=== PATIENT | male | born 1960 | race Caucasian/White ===

== ENCOUNTER 2017-03-31 10:56 | Emergency (ER) | payer OTHER ==
[~2017-03-31] VITALS: Ht 177.8 cm; Wt 102.4 kg
[~2017-03-31 10:56] MED LIST: FIORICET 50-301 EACH PO; KEPPRA500 MG PO; LAMICTAL100 MG PO; LAMOTRIGINE100 MG PO; TEGRETOL; TEGRETOL100 MG PO; TRILEPTAL150 MG PO
[2017-03-31 11:02] VITALS: BP 130/79
== END 2017-03-31 12:34 | disposition home or self-care (01) ==
LOC: EME 10:56
PROC: 0HQ2XZZ Repair Right Ear Skin, External Approach (ICD-10-PCS; principal; 2017-03-31)
DX: S01.312A Laceration without foreign body of left ear, initial encounter (principal); W45.8XXA Other foreign body or object entering through skin, initial encounter; W20.8XXA Other cause of strike by thrown, projected or falling object, initial encounter; R11.0 Nausea
CPT/HCPCS: 99281; 99284

== ENCOUNTER 2017-05-10 08:08 | Observation (INO) | payer OTHER ==
[~2017-05-10] VITALS: Ht 177.8 cm; Wt 99.1 kg
[~2017-05-10 08:08] MED LIST changes: +PERCOCET 5/31 TABLET PO; -TRILEPTAL150 MG PO; +TRILEPTAL600 MG PO
[2017-05-10 09:06] LABS: EOSINOPHIL (%) 1.7 % (0-5); EOSINOPHIL COUNT 0.1 K/uL (0-0.3); HEMATOCRIT 39.6 % (38.0-50.0); IMMATURE GRANULOCYTE (%) 0.3 % (0.0-0.7); INSTRUMENT ABS NEUTROPHIL CT 4.3 K/uL; LYMPHOCYTE COUNT 1.5 K/uL (1.0-2.8); MCH 29.4 PG (29.0-34.0); MCHC 34.8 G/DL (30.0-36.0); MCV 84.3 FL (86-99); MEAN PLAT.VOLUME 8.2 uM^3 (9.0-12.4); MONOCYTE (%) 8.1 % (3-12); MONOCYTE COUNT 0.5 K/uL (0-0.8); NEUTROPHIL (%) 66.3 % (45-76); NEUTROPHIL COUNT 4.3 K/uL (1.8-6.4); PLATELET COUNT 265 K/uL (156-360); WHITE BLOOD COUNT 6.4 K/uL (4.1-10.2)
[2017-05-10 09:13] LABS: INTER. NORMALIZED RATIO 1.1; PROTHROMBIN TIME 12.2 SEC (10.2-12.9)
[2017-05-10 09:15] LABS: D-DIMER ELISA < 150.00 ng/mLDDU (<230); PTT 28.8 SEC (25-37)
[2017-05-10 09:17] LABS: CHLORIDE 96 mEq/L (99-109); SODIUM 125 mEq/L (136-147)
[2017-05-10 09:19] LABS: GLUCOSE 139 mg/dL (70-99)
[2017-05-10 09:20] LABS: ANION GAP 5 MEQ/L (2-14)
[2017-05-10 09:23] LABS: GFR ESTIMATE (CALCULATED) > 59 mL/min/
[2017-05-10 09:24] LABS: UREA NITROGEN (BUN) 6 mg/dL (9-23)
[2017-05-10 09:27] LABS: TROP-I INTERPRETATION NEGATIVE; TROPONIN-I < 0.01 ng/mL (0.0-0.30)
[2017-05-10 13:43] VITALS: BP 140/86
[2017-05-10 14:44] LABS: TROP-I INTERPRETATION NEGATIVE; TROPONIN-I < 0.01 ng/mL (0.0-0.30)
[2017-05-10 14:48] LABS: ANION GAP 9 MEQ/L (2-14); CHLORIDE 97 MEQ/L (99-109); GFR ESTIMATE (CALCULATED) > 59 mL/min/; GLUCOSE 132 mg/dL (70-99); POTASSIUM 4.1 MEQ/L (3.7-5.4); SAMPLE HEMOLYSIS CHECK 0; SAMPLE ICTERIC CHECK 0; SAMPLE LIPEMIA CHECK 0; SODIUM 128 MEQ/L (136-147); UREA NITROGEN (BUN) 6 mg/dL (9-23)
[2017-05-10 15:26] VITALS: BP 140/81
[2017-05-10 19:15] VITALS: BP 134/75
[2017-05-10 21:04] LABS: ADD MIUA? YES; BILIRUBIN NEGATIVE; BLOOD SMALL; COLOR STRAW ((YELLOW)); GLUCOSE (STRIP) NEGATIVE; KETONES NEGATIVE; LEUKOCYTES NEGATIVE; NITRITE NEGATIVE; PROTEIN (STRIP) NEGATIVE; SPECIFIC GRAVITY 1.003 (1.000-1.030); UROBILINOGEN 0.2 MG/DL (0.2-1.0)
[2017-05-10 21:04] LABS: TROP-I INTERPRETATION NEGATIVE; TROPONIN-I < 0.01 ng/mL (0.0-0.30)
[2017-05-10 21:08] LABS: BACTERIA NONE SEEN /HPF; EPITHELIAL CELLS NONE SEEN /HPF; MUCUS NONE SEEN /LPF; RED BLOOD CELLS 0-5 /HPF (0-5); WHITE BLOOD CELLS NONE SEEN /HPF (0-5)
[2017-05-10 23:26] VITALS: BP 133/94
[2017-05-11 03:55] VITALS: BP 135/84
[2017-05-11 06:08] VITALS: BP 151/65
[2017-05-11 06:24] LABS: HEMATOCRIT 40.5 % (38.0-50.0); MCH 29.7 PG (29.0-34.0); MCHC 34.6 G/DL (30.0-36.0); MCV 85.8 FL (86-99); MEAN PLAT.VOLUME 8.3 uM^3 (9.0-12.4); PLATELET COUNT 254 K/uL (156-360); RBC DIS.WIDTH-CV 13.3 % (11.8-14.6); RBC DIS.WIDTH-SD 41.8 % (39-53); RED BLOOD COUNT 4.72 M/uL (4.00-5.50); WHITE BLOOD COUNT 5.1 K/uL (4.1-10.2)
[2017-05-11 07:04] LABS: ANION GAP 7 MEQ/L (2-14); GFR ESTIMATE (CALCULATED) > 59 mL/min/; GLUCOSE 139 mg/dL (70-99); POTASSIUM 4.3 MEQ/L (3.7-5.4); SAMPLE HEMOLYSIS CHECK 0; SAMPLE ICTERIC CHECK 0; SAMPLE LIPEMIA CHECK 0; UREA NITROGEN (BUN) 5 mg/dL (9-23)
[2017-05-11 07:13] LABS: CHLORIDE 107 MEQ/L (99-109); SODIUM 139 MEQ/L (136-147)
[2017-05-11 08:00] VITALS: BP 151/82
[2017-05-11 10:41] LABS: INTERNAL CONTROL VALID? YES
[2017-05-11 11:01] LABS: C DIFF TOXIN NEGATIVE (NEGATIVE)
[2017-05-11 11:21] LABS: PROBE CHECK PASS; SPECIMEN PROCESSING CONTROL PASS
== END 2017-05-11 13:47 | disposition home or self-care (01) ==
LOC: EME 08:08 → EDOF 10:45 → 5EAST 10:45 → ENRESERV 10:50 → EDOF 11:02 → ENRESERV 11:48 → 5EAST 13:20 → ENRESERV 05-11 10:55 → CANRESERV 05-11 10:55 → 5EAST 05-11 13:47
PROVIDERS: Emergency Medicine; Internal Medicine
DX: R07.9 Chest pain, unspecified (principal); E87.1 Hypo-osmolality and hyponatremia; R56.9 Unspecified convulsions; K52.9 Noninfective gastroenteritis and colitis, unspecified; Z87.820 Personal history of traumatic brain injury; R06.02 Shortness of breath; R63.4 Abnormal weight loss; K76.9 Liver disease, unspecified
CPT/HCPCS: 71010; 74177; 80048; 80048 91; 81003; 83630; 83930; 83935; 84300; 84439; 84443; 84484; 85025; 85027; 85379; 85610; 85730; 87177; 87493; 87506; 93005; 99281; 99285; G0378; J1650; J1885; J7030; J7070

== ENCOUNTER 2017-08-22 13:39 | Emergency (ER) | payer OTHER ==
[~2017-08-22] VITALS: Ht 177.8 cm; Wt 103.8 kg
[2017-08-22 14:10] LABS: HEMATOCRIT 42.4 % (38.0-50.0); MCH 29.8 PG (29.0-34.0); MCHC 35.4 G/DL (30.0-36.0); MCV 84.3 FL (86-99); PLATELET COUNT 308 K/uL (156-360); RBC DIS.WIDTH-CV 13.2 % (11.8-14.6); RBC DIS.WIDTH-SD 40.7 % (39-53); RED BLOOD COUNT 5.03 M/uL (4.00-5.50); WHITE BLOOD COUNT 6.9 K/uL (4.1-10.2)
[2017-08-22 14:16] LABS: ALBUMIN 4.3 g/dL (3.2-4.8); CHLORIDE 102 mEq/L (99-109); POTASSIUM 3.9 mEq/L (3.7-5.4); SODIUM 135 mEq/L (136-147)
[2017-08-22 14:18] LABS: GLUCOSE 128 mg/dL (70-99); TOTAL PROTEIN 6.7 g/dL (6.4-8.3)
[2017-08-22 14:20] LABS: TOTAL BILIRUBIN 0.4 mg/dL (0.0-1.0)
[2017-08-22 14:21] LABS: SERUM ETHYL ALCOHOL < 10 mg/dL
[2017-08-22 14:22] LABS: ALKALINE PHOSPHATASE 110 IU/L (3-129); CREATININE 0.8 mg/dL (0.6-1.3); GFR ESTIMATE (CALCULATED) > 59 mL/min/ (58.99-99999)
[2017-08-22 14:23] LABS: AST (GOT) 20 IU/L (2-34); UREA NITROGEN (BUN) 9 mg/dL (9-23)
[2017-08-22 14:25] LABS: ALT (GPT) 21 IU/L (3-49)
[2017-08-22 15:42] LABS: APPEARANCE SL.HAZY ((CLEAR)); BILIRUBIN NEGATIVE; BLOOD NEGATIVE; COLOR YELLOW ((YELLOW)); GLUCOSE (STRIP) 150; KETONES NEGATIVE; LEUKOCYTES NEGATIVE; NITRITE NEGATIVE; PROTEIN (STRIP) 100; SPECIFIC GRAVITY 1.018 (1.000-1.030); UROBILINOGEN 0.2 MG/DL (0.2-1.0)
[2017-08-22 15:56] LABS: AMPHETAMINE NEGATIVE (500 ng/mL); BARBITURATES NEGATIVE (200 ng/mL); BENZODIAZEPINES NEGATIVE (150 ng/mL); BUPRENORPHINE NEGATIVE (10 ng/mL); COCAINE NEGATIVE (150 ng/mL); METHADONE NEGATIVE (200 ng/mL); METHAMPHETAMINE NEGATIVE (500 ng/mL); OPIATES (MORPHINE) NEGATIVE (100 ng/mL); OXYCODONE NEGATIVE (100 ng/mL); PHENCYCLIDINE NEGATIVE (25 ng/mL); PROPOXYPHENE NEGATIVE (300 ng/mL); THC CANNABINOIDS NEGATIVE (50 ng/mL); TRICYCLIC ANTIDEPRESSANTS NEGATIVE (300 ng/mL)
[2017-08-22 15:59] LABS: BACTERIA RARE /HPF; EPITHELIAL CELLS RARE /HPF; MUCUS TRACE /LPF; RED BLOOD CELLS 20-30 /HPF (0-5); WHITE BLOOD CELLS 0-5 /HPF (0-5)
[2017-08-22 17:52] VITALS: BP 123/72
== END 2017-08-22 17:55 | disposition home or self-care (01) ==
LOC: EME 13:39
PROVIDERS: Nurse Practitioner Family
DX: R56.9 Unspecified convulsions (principal); Z87.820 Personal history of traumatic brain injury; Z88.8 Allergy status to other drugs, medicaments and biological substances
CPT/HCPCS: 80053; 81003; 82948; 85027; 99281; 99283; G0480; J2405

== ENCOUNTER 2017-11-11 15:45 | Emergency (ER) | payer OTHER ==
[~2017-11-11] VITALS: Ht 177.8 cm; Wt 98.8 kg
[2017-11-11 16:02] LABS: BASOPHIL (%) 0.8 % (0-1); BASOPHIL COUNT 0.1 K/uL (0-0.1); EOSINOPHIL (%) 1.8 % (0-5); EOSINOPHIL COUNT 0.1 K/uL (0-0.3); HEMATOCRIT 44.8 % (38.0-50.0); HEMOGLOBIN 15.6 G/DL (12.5-16.6); IMMATURE GRANULOCYTE (%) 0.4 % (0.0-0.7); LYMPHOCYTE (%) 36.9 % (15-42); LYMPHOCYTE COUNT 2.8 K/uL (1.0-2.8); MCH 30.1 PG (29.0-34.0); MCHC 34.8 G/DL (30.0-36.0); MCV 86.3 FL (86-99); MONOCYTE (%) 8.7 % (3-12); MONOCYTE COUNT 0.7 K/uL (0-0.8); NEUTROPHIL (%) 51.4 % (45-76); NEUTROPHIL COUNT 3.9 K/uL (1.8-6.4); PLATELET COUNT 260 K/uL (156-360); RBC DIS.WIDTH-CV 13.2 % (11.8-14.6); RED BLOOD COUNT 5.19 M/uL (4.00-5.50); WHITE BLOOD COUNT 7.6 K/uL (4.1-10.2)
[2017-11-11 16:16] LABS: PTT 27.5 SEC (25-37)
[2017-11-11 16:17] LABS: AMYLASE 44 IU/L (1-118); CHLORIDE 107 mEq/L (99-109); POTASSIUM 3.8 mEq/L (3.7-5.4); SODIUM 143 mEq/L (136-147)
[2017-11-11 16:19] LABS: GLUCOSE 134 mg/dL (70-99)
[2017-11-11 16:22] LABS: SERUM ETHYL ALCOHOL < 10 mg/dL
[2017-11-11 16:23] LABS: GFR ESTIMATE (CALCULATED) > 59 mL/min/ (58.99-99999)
[2017-11-11 16:24] LABS: UREA NITROGEN (BUN) 10 mg/dL (9-23)
[2017-11-11 16:26] LABS: LIPASE 35 U/L (1.0-51.0)
[2017-11-11 16:31] LABS: TROP-I INTERPRETATION NEGATIVE; TROPONIN-I < 0.01 ng/mL (0.0-0.30)
[2017-11-11 18:35] VITALS: BP 130/74
== END 2017-11-11 18:42 | disposition home or self-care (01) ==
LOC: EME → EDBD 15:45 → EME 15:45
PROVIDERS: Emergency Medicine
DX: G40.909 Epilepsy, unspecified, not intractable, without status epilepticus (principal); G83.84 Todd's paralysis (postepileptic)
CPT/HCPCS: 70450; 80048; 81003; 82150; 83690; 84484; 85025; 85610; 85730; 86850; 86900; 86901; 93005; 99281; 99285; G0480; J1885; J7040